=== PATIENT | female | born 1935 | race Caucasian/White ===

== ENCOUNTER → 2018-01-18 | Outpatient (CLI) | payer OTHER ==
[~2018-01-18] MED LIST: CIPRO250 M1 PO; CLARITIN10 MG PO; FISH OIL 1,001000 M2 PO; IRON325 PO; LEVAQUIN 500 M500 M2 PO; MULTIVITAMINS PO; VITAMIN C PO; VITAMIN D PO; ZANTAC 150MG T150 M1 PO
== END ==
LOC: M.CT 12:10 → M.LAB 12:30 → M.CT 13:30
DX: K59.09 Other constipation (principal); K57.30 Diverticulosis of large intestine without perforation or abscess without bleeding; K63.89 Other specified diseases of intestine; N39.0 Urinary tract infection, site not specified; R31.9 Hematuria, unspecified

== ENCOUNTER 2018-06-06 17:26 | Inpatient (IN) | payer OTHER ==
[~2018-06-06] VITALS: Ht 152.4 cm; Wt 72.1 kg
[~2018-06-06 17:26] MED LIST changes: -IRON325 PO; -LEVAQUIN 500 M500 M2 PO
[2018-06-06 17:29] VITALS: BP 115/59
[2018-06-06 18:42] LABS: HEMATOCRIT 32.3 % (37.0-47.0); HEMOGLOBIN 10.6 gm/dL (12.0-15.0); MCH 29.4 pg (26.0-34.0); MCHC 32.7 g/dL (28.0-37.0); MCV 89.9 fL (80.0-100.0); NUCLEATED RBCS 0 /100WBC; PLATELET COUNT* 248 thou/uL (150-400); RBC 3.59 mil/uL (4.20-5.00); WBC 11.3 thou/uL (4.0-11.0)
[2018-06-06 18:53] LABS: APTT 30.1 Seconds (25.0-31.3); PROTIME 10.5 Seconds (9.20-11.50)
[2018-06-06 18:54] LABS: CALCIUM 8.3 mg/dL (8.5-10.1); CREATININE 0.7 mg/dL (0.6-1.3); POTASSIUM 4.1 mmol/L (3.5-5.1)
[2018-06-06 18:59] LABS: ALBUMIN 2.9 g/dL (3.4-5.0); TOTAL BILIRUBIN 0.4 mg/dL (<0.1-1.0); TOTAL PROTEIN 8.1 g/dL (6.4-8.2)
[2018-06-06 19:15] LABS: ABSOLUTE LYMPHOCYTES 0.3 thou/uL (0.8-5.3); ABSOLUTE MONOCYTES 0.7 thou/uL (0.0-1.2); ABSOLUTE NEUTROPHILS 10.3 thou/uL (1.6-8.1)
[2018-06-06 19:16] LABS: PLATELET ESTIMATE ADEQUATE
[2018-06-06 19:45] LABS: URINE BILIRUBIN NEGATIVE (Negative); URINE BLOOD 2+ (Negative); URINE CLARITY CLEAR; URINE COLOR YELLOW; URINE GLUCOSE-RANDOM NEGATIVE (Negative); URINE KETONES NEGATIVE (Negative); URINE NITRITE-REFLEX NEGATIVE (Negative); URINE PROTEIN NEGATIVE (Negative); URINE SPECIFIC GRAVITY 1.015 (1.005-1.030); URINE UROBILINOGEN 0.2 E.U./dl (0.2-1.0)
[2018-06-06 19:46] LABS: URINE LEUKOCYTES-REFLEX 3+ (Negative)
[2018-06-06 19:55] LABS: BACTERIA-REFLEX 1-9 Few /HPF (None Seen); CASTS None Seen /LPF (None Seen); CRYSTALS None Seen /LPF (None Seen); SQUAMOUS 0-3 Few /LPF (0-3); URINE RBC 3-10 Few /HPF (0-2); URINE WBC-REFLEX >25 Many /HPF (0-5)
[2018-06-06 20:53] VITALS: BP 104/50
[2018-06-06 21:30] VITALS: BP 112/46
--- NOTE | 2018-06-06 23:05 | NUR ---
PT WAS ADMITTED ON THE FLOOR AT 2114. ACCOMPANIED BY ER NURSE. TRANSPORTED ON A STRETCHER. PT IS ALERT AWAKE ORIENTED X 4 PLEASNT, ON MED SURG STATUS. VITAL SIGNS ARE WITHIN NORMAL UNIT. PT IS CURRENTLY GIVEN CIPRO IV. SHE STATES THAT SHE WAS TAKING PO CIPRO AND SHE GOT SICK AFTER HER FIRST DOSE. SHE IS CURRENTLY ON ROOM AIR AND O2 SATURATION IS 99% ON RA. SHE COMPLAINS OF HEADACHE LEVEL OF 2. IBUPROFEN GIVEN FOR HEADACHE. ADMISSION ASSESSMENT AND HISTORY PERFORMED. IV BAG OF NS HANGED ORDERED GOING AT 90CC PER HOUR. IV LINE IS PATENT. MADE COMFORTABLE, LIGHTS OFF, BED IN LOWEST POSITION CALL LIGHT AT REACH. WILL CONTINUE TO MONITOR.
[2018-06-07] VITALS: BP 112/51
[2018-06-07 04:27] LABS: HEMATOCRIT 27.7 % (37.0-47.0); HEMOGLOBIN 9.4 gm/dL (12.0-15.0); MCH 30.5 pg (26.0-34.0); MCHC 33.8 g/dL (28.0-37.0); MCV 90.2 fL (80.0-100.0); MPV 7.9 fl. (7.2-11.1); RBC 3.07 mil/uL (4.20-5.00); RDW-CV 14.3 % (10.5-14.5); WBC 6.9 thou/uL (4.0-11.0)
[2018-06-07 04:41] LABS: ALBUMIN 2.3 g/dL (3.4-5.0); CALCIUM 7.8 mg/dL (8.5-10.1); CREATININE 0.7 mg/dL (0.6-1.3); TOTAL BILIRUBIN 0.3 mg/dL (<0.1-1.0); TOTAL PROTEIN 6.3 g/dL (6.4-8.2)
[2018-06-07 09:34] VITALS: BP 110/40
[2018-06-07 12:15] VITALS: BP 114/52
[2018-06-07 16:39] VITALS: BP 123/54
--- NOTE | 2018-06-07 17:38 | NUR ---
ASSUMED CARE OF PATIENT AFTER MORNING REPORT. ALERT AND ORIENTED X4. ASSESSMENT COMPLETED AND CHARTED. VSS ON ROOM AIR. NO COMPLAINTS OF PAIN, NAUSEA, OR SOA. FLUIDS AND ANTIBIOTICS INFUSED ORDERED. PATIENT RESTED COMFORTABLY IN BED THROUGHOUT SHIFT AND HAS NO COMPLAINTS OR NEEDS UPON ROUNDS. HOURLY ROUNDS MAINTAINED, CALL LIGHT WITHIN REACH, NURSING WILL CONTINUE TO MONITOR.
[2018-06-07 21:45] VITALS: BP 123/53
[2018-06-08 04:34] LABS: HEMATOCRIT 26.9 % (37.0-47.0); MCH 30.4 pg (26.0-34.0); MCHC 33.6 g/dL (28.0-37.0); MCV 90.3 fL (80.0-100.0); MPV 8.6 fl. (7.2-11.1); RBC 2.98 mil/uL (4.20-5.00); RDW-CV 14.1 % (10.5-14.5); WBC 6.5 thou/uL (4.0-11.0)
[2018-06-08 04:45] LABS: CALCIUM 7.7 mg/dL (8.5-10.1); CREATININE 0.6 mg/dL (0.6-1.3); MAGNESIUM 1.6 mg/dL (1.8-2.4); POTASSIUM 3.9 mmol/L (3.5-5.1)
[2018-06-08 04:54] VITALS: BP 112/50
--- NOTE | 2018-06-08 06:16 | NUR ---
UP WITH STAND BY ASSIST TO BATHROOM. VOIDING WITHOUT DIFFICULTY. NAUSEA MEDICATION GIVEN X1 AND HELPFUL. IVF INFUSING WITHOUT DIFFICULTY BED ALARM ON AND CALL LIGHT WITHIN REACH.
[2018-06-08 08:10] VITALS: BP 110/48
--- NOTE | 2018-06-08 10:17 | NUR ---
INITIAL ASSESSMENT: Pt evaluated for d/c planning needs. Reviewed chart and spoke with nurse, pt and SO at bedside. Pt is alert and oriented. Pt lives at home with SO and was independent with ADL's. Pt uses cane for ambulation and has not had home health in the past. Pt plans on returning home on d/c from hospital. Will remain available to assist as needed.
[2018-06-08 16:19] VITALS: BP 114/55
--- NOTE | 2018-06-08 19:57 | NUR ---
PATIENT RESTING IN BED. PATIENT HAS HAD COMPLAINTS OF ABDOMINAL CRAMPING THIS EVENING. PATIENTHAS HAD BOWEL MOVEMENT THIS EVENING. PATIENT HAS POOR APPETITE, REFUSING MOST OF MEALS. PATIENT IS UP AD BRENDA IN ROOM TO BATHROOM. PATIENT HAD CHILLS THIS EVENING WITH NAUSEA, NO FEVER AND NO VOMITING. PATRICK GIVEN AND DR STEWART NOTIFIED. PATIENT DENIES ANY NEEDS AT THIS TIME. CALL LIGHT WITHIN REACH. WILL CONTINUE TO MONITOR.
[2018-06-08 20:18] VITALS: BP 115/45
--- NOTE | 2018-06-09 00:01 | NUR ---
PATIENT ALERT AND ORIENTED X4. C/O NAUSEA AT ON PRIOR SHIFT AND WAS GIVEN NAUSEA MEDICATION AT 1854. PATIENT STILL C/O NAUSEA AT BEGINNING OF MY SHIFT. COOL WASH CLOTHS APPLIED TO PATIENT'S FACE AND NECK WHICH PATIENT STATED WAS HELPFUL. V/S TAKEN AND WAS NOTED TO HAVE ELEVATED PULSE AND TEMPATURE. NOTIFIED AND NEW ORDERS NOTED. NURSING DAY TRADER NOTIFIED AND REPORT WAS CALLED TO STEPHANIE. SHE WAS NOTIFED OF MOST RECENT ASSESSMENTS AND VS. PATIENT TRANSFERED TO ROOM 225 ON TELE VIA BED WITHOUT DIFFICULTY AT ABOUT 2200.
[2018-06-09 04:00] VITALS: BP 114/47; BP 117/53
--- NOTE | 2018-06-09 04:51 | NUR ---
PT ARRIVED FROM [facility] AT AROUND 10:35PM, RECIEVED REPORT, AND DID MY ASSESSMENT AT THIS TIME WITH NO CHANGES NOTED. PT STATED SHE ALREADY FELT BETTER AND WAS BACK TO NORMAL. UP WITH 1 WITH CANE, NO C/O PAIN, ABLE TO MAKE NEEDS KNOWN, IVF AND ABT GIVEN PER P.O. WILL CONTINUE TO MONITOR.
[2018-06-09 04:58] LABS: HEMATOCRIT 25.4 % (37.0-47.0); HEMOGLOBIN 8.5 gm/dL (12.0-15.0); MCH 30.5 pg (26.0-34.0); MCHC 33.6 g/dL (28.0-37.0); MCV 90.9 fL (80.0-100.0); MPV 8.9 fl. (7.2-11.1); RBC 2.79 mil/uL (4.20-5.00); RDW-CV 14.3 % (10.5-14.5); WBC 10.5 thou/uL (4.0-11.0)
[2018-06-09 05:10] LABS: CALCIUM 7.4 mg/dL (8.5-10.1); CREATININE 0.6 mg/dL (0.6-1.3); MAGNESIUM 1.9 mg/dL (1.8-2.4); POTASSIUM 3.8 mmol/L (3.5-5.1); TOTAL BILIRUBIN 0.3 mg/dL (<0.1-1.0); TOTAL PROTEIN 5.7 g/dL (6.4-8.2)
[2018-06-09 08:06] VITALS: BP 117/52
--- NOTE | 2018-06-09 09:51 | NUR ---
ASSUMED CARE OF PT THIS AM AROUND 0715- SUPERVISOR MOLD CLEANING AND STORAGE IN PLACE ORDERED, TRACING SB THIS AM- UPON ASSESSMENT PT NOTED TO BE RESTING IN BED, AT SIDE VISITTING- CONTINENT OF BOWEL AND BLADDER- ASSIST X1 WITH TRANSFERS- LCTA, DIMINISHED IN BASES- VSS, O2 SAT 93% ON 2L VIA NC- RESP EVEN AND UN-LABORED- ABDOMEN SOFT/ROUND/NON-TENDER, BS X4 QUADS- PT REPORTS TO HAVE HAD BM THIS AM- IV NOTED TO LEFT FA INTACT, IVF INFUSSING PRESCIBED- VANC GIVEN PRESIBED, NO ADVERSE REACTIONS TO NOTE- GOOD PO INTAKE NOTED THIS AM WITH BREAKFAST- DENIES ANY C/O PAIN/DISCOMFORT AT THIS TIME- CALL LIGHT AND PERSONAL BELONGINGS WITH IN REACH- HOURLY ROUNDS IN PLACE R/T SAFETY/NEEDS- ALL NEEDS MET AT THIS TIME-WCTM
[2018-06-09 12:30] VITALS: BP 112/51
[2018-06-09 16:00] VITALS: BP 122/59
--- NOTE | 2018-06-09 16:48 | NUR ---
PT CURRENLTY RESTING IN BED, FRIENDS AT SIDE VISITTING- MENTAL HEALTH AIDES TEACHER IN PLACE AND CONTINUED INDICATED, TRACING SR- IV TO LEFT FA INTACT, IVF INFUSSING PRESIBED- IV ABT GIVEN THIS SHIFT PRESCRIBED WITH NO ADVERSE REACTIONS TO NOTE- GOOD PO INTAKE NOTED WITH MEALS THIS SHIFT, PT REMAINS AFEBRILE-PT DENIES ANY C/O PAIN/DISCOMFORT AT THIS TIME- CALL LIGHT AND PERSONAL BELONGINGS WITH IN REACH- ALL NEEDS MET AT THIS TIME-WCTM
[2018-06-09 20:00] VITALS: BP 129/50
[2018-06-10] VITALS (7 sets, daily range): BP systolic 112–135; BP diastolic 51–80
--- NOTE | 2018-06-10 05:01 | NUR ---
ASSUMED PT CARE AT 1930. ASSESSMENT COMPLETED CHARTED. UP WITH STANDBY WITH A CANE, A & O, IVF AND ABT RUNNING PER P.O. NO C/O PAIN THIS SHIFT. RESTING COMFORTABLY IN BED. WILL CONTINUE TO MONITOR.
[2018-06-10 05:10] LABS: HEMATOCRIT 26.4 % (37.0-47.0); HEMOGLOBIN 8.7 gm/dL (12.0-15.0); MCH 30.1 pg (26.0-34.0); MCHC 33.1 g/dL (28.0-37.0); MCV 90.9 fL (80.0-100.0); RBC 2.9 mil/uL (4.20-5.00); RDW-CV 14.3 % (10.5-14.5); WBC 6.4 thou/uL (4.0-11.0)
[2018-06-10 05:27] LABS: CALCIUM 7.7 mg/dL (8.5-10.1); CREATININE 0.6 mg/dL (0.6-1.3); MAGNESIUM 1.9 mg/dL (1.8-2.4); POTASSIUM 4.3 mmol/L (3.5-5.1)
--- NOTE | 2018-06-10 10:55 | CON ---
[address] [address] CONSULTATION Name: DANNY RAJAN Room: [address] IN .R.#: [id number] Admission: 06/06/18 Attend Phys: Paige Robertson Discharge: Date of : 33 Report #: [id number] THIS REPORT FOR: //name// CC: Brett Oconnell DATE OF SERVICE: 06/09/2018 ATTENDING PHYSICIAN: Dima Otero MD REASON FOR CONSULTATION: UTI. HISTORY OF PRESENT ILLNESS: The patient is an 83-year-old white woman who apparently was receiving treatment for urinary tract infection with Cipro and she fell sick all over with nausea and vomiting. Today, she is feeling better and her urinary symptoms appear to have subsided. DRUG ALLERGIES: CODEINE, PENICILLIN. MEDICATIONS: The patient is on treatment with vancomycin 750 mg IV 2 times daily, Levaquin 500 mg IV daily, also receiving treatment with polyethylene glycol, enoxaparin, pantoprazole, potassium and phosphorus supplementation per protocol, multivitamins, acetaminophen p.r.n., tramadol p.r.n., morphine sulfate p.r.n., ondansetron p.r.n. PAST MEDICAL HISTORY: Rotator cuff surgery, bilateral. History of gastroesophageal reflux disease. Uterine prolapse surgery. Peptic ulcer disease. Cataract surgery. SOCIAL HISTORY: See H and P. FAMILY HISTORY: See H and P. REVIEW OF SYSTEMS: As above and see H and P. PHYSICAL EXAMINATION: GENERAL: This is a well-developed nontoxic looking woman. VITAL SIGNS: Temperature 102.4 yesterday, pulse 57, respirations 17, BP 117/53 and currently temperature is 97.6. HEENMT: Within range. NECK: Supple. LUNGS: Clear. BREASTS: Deferred. HEART: S1, S2. No gallop. ABDOMEN: Soft, no masses or megaly. PELVIC AND RECTAL: [place] [address] CONSULTATION Name: DANNY RAJAN Room: [address] IN [facility]#: [id number] Admission: 06/06/18 Attend Phys: Paige Robertson Discharge: Date of : 34 Report #: [id number] EXTREMITIES: No clubbing, cyanosis. NEUROLOGIC: Grossly within normal limits. LABORATORY DATA: On admission, sodium 128, repeated 135, potassium 3.9, BUN 6, creatinine 0.6. Magnesium 1.6. Albumin 2.9 g/dL. White blood cell count on admission 11,300, hemoglobin 10.6 g/dL. Repeat blood test on 06/08/2018 revealed a white blood cell count has decreased to 6500, hemoglobin 9 g/dL, platelets 195,000. Prealbumin 12.4 g/dL. The urinalysis revealed pH 5.5, 2+ blood, 3+ leukocyte esterase, microscopic examination of the urine revealed pyuria, microscopic hematuria and bacteriuria. Cultures are all negative or pending at the time of this dictation. CT scan of the abdomen and pelvis was canceled. Chest x-ray revealed some bilateral pulmonary infiltrates without significant focal consolidation. ASSESSMENT: 1. Fever, undetermined source. 2. Possible acute urinary tract infection. 3. Nausea and vomiting secondary to Cipro. 4. Fever, question etiology. 5. Hypoalbuminemia. 6. Electrolyte imbalance, improved, (?) resolved. 7. Hypomagnesemia. 8. Anemia of undetermined etiology. 9. Leukocytosis, resolved. SUGGESTIONS: Recommend continued treatment with vancomycin and Levaquin. Streamline antibiotic regimen once culture results available. Dr. Baker, thank you for requesting my suggestions. <ELECTRONICALLY SIGNED> By: Ammon Rao MD 06/10/18 1055 0507 [id number] Rao MD /nt
--- NOTE | 2018-06-10 12:00 | NUR ---
ASSUMED CARE OF PATIENT AFTER RECEIVING REPORT FROM NING RN. PT A & O X4. RN REVIEW IN PLACE, SR. O2 SAT 95% ON 2L NC/MIN. IV INFUSION OF IV ABX PER ORDER. ASSESSMENT COMPLETE, DOCUMENTED. MEDS PER DEC. PT UP WITH SBA ASSIST, CALLS APPROPRIATELY FOR HELP WHEN NEEDED. CALL LIGHT IN REACH.
--- NOTE | 2018-06-10 18:15 | NUR ---
PT UP TO CHAIR FOR RELIEF OF BACK PAIN. PRN TYLENOL GIVEN FOR BACK PAIN PER DEC. IV INFUSING LEVAQUIN ORDERED. PT ABLE TO COMMUNICATE NEEDS TO STAFF. CALL LIGHT IN REACH.
[2018-06-11 04:00] VITALS: BP 120/54
--- NOTE | 2018-06-11 04:52 | NUR ---
ASSUMED PT CARE AT 1930. ASSESSMENT COMPLETED CHARTED. ABLE TO MAKE NEEDS KNOWN. C/O NAUSEA AND HEADACHE TODAY AND GIVEN PRN PER P.O. UP WITH STANDBY. IV SL. PT RESTING IN BED MOST OF THE NIGHT. VSS. WILL CONTINUE TO MONITOR.
[2018-06-11 08:10] VITALS: BP 135/48
[2018-06-11 11:48] VITALS: BP 137/58
--- NOTE | 2018-06-11 18:57 | NUR ---
PATIENT HAS BEEN A/O X 4 THIS SHIFT. MEDICATED FOR HEADACHE THIS SHIFT WITH COMPLETE RELIEF AFTER EXCEDRIN GIVEN. VANC TROUGH LOW THIS SHIFT, DOSE INCREASED BY PHARMACY AND NEW DOSE GIVEN. PATIENT UP SBA WITH CANE TO BATHROOM. PATIENT M/S STATUS. PATIENT TOLERATING DIET, NO NAUSEA THIS SHIFT. PATIENT TO HAVE CXR IN AM. HOURLY ROUNDING COMPLETED. CALL LIGHT WITHIN REACH. WILL CONTINUE WITH PLAN OF CARE.
[2018-06-11 20:00] VITALS: BP 104/55
[2018-06-12] VITALS: BP 125/55
--- NOTE | 2018-06-12 03:38 | NUR ---
ASSUMED PT CARE AT 1930. ASSESSMENT COMPLETED CHARTED. ABLE TO MAKE NEEDS KNOWN. UP WITH STANDBY WITH CANE. NO C/O PAIN, NAUSEA, OR SOA. EXCITED TO BE GOING HOME TODAY. WILL CONTINUE TO MONITOR.
[2018-06-12 08:00] VITALS: BP 149/60
--- NOTE | 2018-06-12 11:04 | NUR ---
ASSUMED CARE OF PATIENT THIS AM AT 0730. PATIENT IS ALERT AND ORIENTED X 4. SHE DENIES PAIN AND DISCOMFORT. PATIENT ASSISTED WITH ADLS NEEDED THROUGHOUT THE AM. PATIENT TAKEN TO RADIOLOGY PER W/C FOR A XRAY PER AND RETURNED. DR VIGIL IN TO ROUND AND PLANS DISCHARGE FOR TODAY. PATIENT STATES SHE IS READY TO GO HOME.
[2018-06-12 12:18] VITALS: BP 149/60
[2018-06-12] MEDS ORDERED: LEVAQUIN 500 M500 M2 PO (13:00)
[2018-06-12] MEDS ORDERED: IRON325 PO (13:01)
== END 2018-06-12 13:45 | disposition home or self-care (01) | DRG 871 ==
LOC: M.ERS 17:26 → M.TBA-ER 20:04 → M.ORTHSURG 20:04 → M.2W 20:04 → M.ORTHSURG 06-07 07:49 → M.2W 06-08 22:21
PROVIDERS: Emergency Medicine Emergency Medical Services; Family Medicine; Internal Medicine; Nurse Practitioner Family; ADMIT Internal Medicine
DX: A41.9 Sepsis, unspecified organism (principal); J69.0 Pneumonitis due to inhalation of food and vomit; J15.6 Pneumonia due to other Gram-negative bacteria; E43 Unspecified severe protein-calorie malnutrition; N39.0 Urinary tract infection, site not specified; E87.1 Hypo-osmolality and hyponatremia; K21.9 Gastro-esophageal reflux disease without esophagitis; E88.09 Other disorders of plasma-protein metabolism, not elsewhere classified; E83.42 Hypomagnesemia; D72.829 Elevated white blood cell count, unspecified; K59.00 Constipation, unspecified; D50.9 Iron deficiency anemia, unspecified; Z98.42 Cataract extraction status, left eye; Z98.41 Cataract extraction status, right eye; Z88.6 Allergy status to analgesic agent; Z88.0 Allergy status to penicillin; Z87.11 Personal history of peptic ulcer disease; Z68.31 Body mass index [BMI] 31.0-31.9, adult

== ENCOUNTER 2018-09-14 09:25 | Emergency (ER) | payer OTHER ==
[~2018-09-14] VITALS: Ht 170.2 cm; Wt 61.2 kg
[~2018-09-14 09:25] MED LIST changes: +IRON325 PO; +LEVAQUIN 500 M500 M2 PO
[2018-09-14] MEDS ORDERED: SYNTHROID100 MC1 PO (09:34)
[2018-09-14 09:58] LABS: HEMOGLOBIN 11.2 gm/dL (12.0-15.0); MCH 29.8 pg (26.0-34.0); MCV 90.3 fL (80.0-100.0); MPV 8.6 fl. (7.2-11.1); NUCLEATED RBCS 0 /100WBC; PLATELET COUNT* 203 thou/uL (150-400); RBC 3.77 mil/uL (4.20-5.00); RDW-CV 15.9 % (10.5-14.5); WBC 5.2 thou/uL (4.0-11.0)
[2018-09-14 10:05] LABS: ANION GAP 9 mmol/L (7-16); BUN 10 mg/dL (7-18); CALCIUM 8.4 mg/dL (8.5-10.1); CHLORIDE 101 mmol/L (98-107); CO2 24 mmol/L (21-32); CREATININE 0.9 mg/dL (0.6-1.3); GLUCOSE 116 mg/dL (70-99); POTASSIUM 4.1 mmol/L (3.5-5.1); SODIUM 134 mmol/L (136-145)
[2018-09-14 10:15] LABS: ALBUMIN 2.8 g/dL (3.4-5.0); ALKALINE PHOSPHATASE 78 U/L (46-116); SGOT 23 U/L (15-37); SGPT 11 U/L (30-65); TOTAL BILIRUBIN 0.3 mg/dL (<0.1-1.0); TOTAL PROTEIN 7.3 g/dL (6.4-8.2); TROPONIN-I LEVEL <0.06 ng/mL (<0.06)
[2018-09-14 10:46] LABS: ABSOLUTE EOSINOPHILS 0.1 thou/uL (0.0-0.7); ABSOLUTE LYMPHOCYTES 0.2 thou/uL (0.8-5.3); ABSOLUTE MONOCYTES 0.2 thou/uL (0.0-1.2); ABSOLUTE NEUTROPHILS 4.8 thou/uL (1.6-8.1); PLATELET ESTIMATE ADEQUATE
[2018-09-14] MEDS ORDERED: KEFLEX500 M1 PO (11:09)
[2018-09-14] MEDS ORDERED: HYDROCODONE-AP1 EAC6 PO (11:09)
[2018-09-14 11:17] VITALS: BP 104/70
--- NOTE | 2018-09-16 10:20 | EKG ---
[place] [address] ELECTROCARDIOGRAM REPORT Name: DANNY RAJAN Room: [facility]#: [id number] Admission: 09/14/18 Attend Phys: Discharge: 09/14/18 Date of : 34 Report #: [id number] THIS REPORT FOR: //name// [facility] ED Test Date: 2018-09-14 Test Time: 09:34:53 Pat Name: DANNY RAJAN Department: Room: Gender: F Cyber Reverse Engineer: LEA : 1935 Requested By: Gordon Pack Order Number: [id number] MD: Wilton Cook Measurements Intervals [place] Rate: 92 P: 13 SC: 174 QRS: 12 QRSD: 75 T: 56 QT: 350 QTc: 433 Interpretive Statements Sinus rhythm Baseline wander in lead(s) V4,V5,V6 Compared to ECG 07/22/2017 15:44:16 Sinus tachycardia no longer present Electronically Signed On 09-16-2018 10:20:27 BRICK LAYER by Wilton Cook [email or web address] <ELECTRONICALLY SIGNED> By: Wilton Cook MD, [facility] 09/16/18 1020 Wilton Cook MD, [facility] /EPI
== END 2018-09-14 11:19 | disposition home or self-care (01) ==
LOC: M.ERS 09:25
PROVIDERS: Emergency Medicine Emergency Medical Services
DX: M25.512 Pain in left shoulder (principal); T37.0X5A Adverse effect of sulfonamides, initial encounter; K21.9 Gastro-esophageal reflux disease without esophagitis; Z88.1 Allergy status to other antibiotic agents; Z88.0 Allergy status to penicillin; Z88.5 Allergy status to narcotic agent; Y92.89 Other specified places as the place of occurrence of the external cause

== ENCOUNTER 2019-07-28 21:24 | Emergency (ER) | payer OTHER ==
[~2019-07-28] VITALS: Ht 170.2 cm; Wt 61.2 kg
[~2019-07-28 21:24] MED LIST changes: +HYDROCODONE-AP1 EAC6 PO; +KEFLEX500 M1 PO; +SYNTHROID100 MC1 PO
[2019-07-28] MEDS ORDERED: IBUPROFEN 600600 M1 PO ×2 (23:07→23:10)
[2019-07-28] MEDS ORDERED: TRAMADOL 50 MG50 MG PO (23:16)
[2019-07-28 23:35] VITALS: BP 132/59
== END 2019-07-28 23:35 | disposition home or self-care (01) ==
LOC: M.ERS 21:24
DX: S42.211A Unspecified displaced fracture of surgical neck of right humerus, initial encounter for closed fracture (principal); S80.211A Abrasion, right knee, initial encounter; K21.9 Gastro-esophageal reflux disease without esophagitis; Z88.1 Allergy status to other antibiotic agents; Z88.0 Allergy status to penicillin; Z88.5 Allergy status to narcotic agent; W18.39XA Other fall on same level, initial encounter; Y93.89 Activity, other specified; Y92.89 Other specified places as the place of occurrence of the external cause; Y99.8 Other external cause status

== ENCOUNTER 2019-09-09 18:31 | Inpatient (IN) | payer OTHER ==
[~2019-09-09] VITALS: Ht 170.2 cm; Wt 57.3 kg
[~2019-09-09 18:31] MED LIST changes: +IBUPROFEN 600600 M1 PO; +TRAMADOL 50 MG50 MG PO
[2019-09-09 18:36] VITALS: BP 133/61
[2019-09-09 20:27] LABS: ABSOLUTE LYMPHOCYTES 0.5 thou/uL (0.8-5.3); ABSOLUTE MONOCYTES 0.3 thou/uL (0.0-1.2); ABSOLUTE NEUTROPHILS 2.9 thou/uL (1.6-8.1); BASOPHILS 0.9 %; EOSINOPHILS 0.4 %; HEMOGLOBIN 7.8 gm/dL (12.0-15.0); LYMPHOCYTES 13.1 %; MCH 31.2 pg (26.0-34.0); MCV 91.9 fL (80.0-100.0); MONOCYTES 8.4 %; MPV 9.5 fl. (7.2-11.1); NUCLEATED RBCS 0 /100WBC; PLATELET COUNT* 230 thou/uL (150-400); POLYS 77.2 %; RBC 2.51 mil/uL (4.20-5.00); WBC 3.8 thou/uL (4.0-11.0)
[2019-09-09 20:35] LABS: CALCIUM 8.9 mg/dL (8.5-10.1); CREATININE 0.8 mg/dL (0.6-1.3); POTASSIUM 3.9 mmol/L (3.5-5.1)
[2019-09-09 20:36] LABS: ALBUMIN 3.2 g/dL (3.4-5.0); TOTAL BILIRUBIN 0.1 mg/dL (<0.1-1.0); TOTAL PROTEIN 7.4 g/dL (6.4-8.2)
[2019-09-09 20:39] LABS: URINE BILIRUBIN NEGATIVE (Negative); URINE BLOOD 3+ (Negative); URINE CLARITY SL CLOUDY; URINE COLOR YELLOW; URINE GLUCOSE-RANDOM NEGATIVE (Negative); URINE KETONES NEGATIVE (Negative); URINE NITRITE-REFLEX NEGATIVE (Negative); URINE PROTEIN NEGATIVE (Negative); URINE UROBILINOGEN 0.2 E.U./dl (0.2-1.0)
[2019-09-09 20:40] LABS: URINE LEUKOCYTES-REFLEX 3+ (Negative)
[2019-09-09 20:50] LABS: BACTERIA-REFLEX >30 Many /HPF (None Seen); CASTS None Seen /LPF (None Seen); CRYSTALS None Seen /LPF (None Seen); SQUAMOUS 4-10 Moderate /LPF (0-3); URINE RBC 3-10 Few /HPF (0-2); URINE WBC-REFLEX >25 Many /HPF (0-5)
[2019-09-09 22:44] LABS: HEMATOCRIT 21.5 % (37.0-47.0); HEMOGLOBIN 7.5 gm/dL (12.0-15.0)
[2019-09-09 23:20] VITALS: BP 125/59
[2019-09-10] VITALS: BP 130/58
[2019-09-10] MEDS ORDERED: BACTRIM DS TAB1 EAC1 PO (01:19)
[2019-09-10] MEDS ORDERED: NATURAL LUTEIN20 MG PO (01:19)
[2019-09-10 04:13] LABS: HEMATOCRIT 20.4 % (37.0-47.0)
[2019-09-10 04:25] LABS: HEMOGLOBIN 6.9 gm/dL (12.0-15.0)
[2019-09-10 04:45] LABS: % SATURATION 9 % (20-39); IRON 24 ug/dL (50-175)
[2019-09-10 08:00] VITALS: BP 179/59
[2019-09-10 14:00] VITALS: BP 102/85
[2019-09-10 16:03] VITALS: BP 145/49
--- NOTE | 2019-09-10 17:01 | EKG ---
[place] [address] ELECTROCARDIOGRAM REPORT Name: DANNY RAJAN Room: [address] ADM IN [facility].#: [id number] Admission: 09/09/19 Attend Phys: Mikey Johnson MD Discharge: Date of : 34 Report #: [id number] THIS REPORT FOR: //name// [facility] Test Date: 2019-09-10 Test Time: 11:30:26 Pat Name: DANNY RAJAN Department: Room: [address] Gender: F Email Manager: : 1935 Requested By: Lucien Falcon Order Number: [id number] Nory MD: Kyle Bueno Measurements Intervals [place] Rate: 82 P: 6 ND: 193 QRS: -11 QRSD: 69 T: 52 QT: 367 QTc: 429 Interpretive Statements Sinus rhythm Compared to ECG 09/14/2018 09:34:53 No significant changes Electronically Signed On 09-10-2019 17:01:11 FREIGHT CALLER by Kyle Bueno [email or web address] <ELECTRONICALLY SIGNED> By: Kyle Bueno MD, [facility] 09/10/19 1701 1130 29 Kyle Bueno MD, [facility]ACC /EPI
[2019-09-10] MEDS ORDERED: IRON325 M1 PO (19:19)
[2019-09-11 04:16] LABS: HEMATOCRIT 20.9 % (37.0-47.0); MCH 30.8 pg (26.0-34.0); MCHC 33.6 g/dL (28.0-37.0); MCV 91.7 fL (80.0-100.0); MPV 8.4 fl. (7.2-11.1); RBC 2.28 mil/uL (4.20-5.00); RDW-CV 16.5 % (10.5-14.5); WBC 2.2 thou/uL (4.0-11.0)
[2019-09-11 04:40] LABS: ALBUMIN 2.5 g/dL (3.4-5.0); CALCIUM 8.1 mg/dL (8.5-10.1); CREATININE 0.5 mg/dL (0.6-1.3); MAGNESIUM 1.9 mg/dL (1.8-2.4); POTASSIUM 3.5 mmol/L (3.5-5.1); TOTAL BILIRUBIN 0.1 mg/dL (<0.1-1.0)
[2019-09-11 07:50] VITALS: BP 120/45
--- NOTE | 2019-09-11 15:15 | CON ---
[address] [address] CONSULTATION Name: DANNY RAJAN Room: [address] IN [facility]#: [id number] Admission: 09/09/19 Attend Phys: Mikey Johnson MD Discharge: Date of : 34 Report #: [id number] THIS REPORT FOR: //name// CC: Dano Oconnell DO Mikey Johnson DICTATED BY: Elana Burris [facility] DATE OF SERVICE: 09/10/2019 Please note at the time of this dictation, the patient was seen and physically examined by myself. REASON FOR CONSULTATION: Melanotic stool, acute anemia. HISTORY OF PRESENT ILLNESS: This is a pleasant 84-year-old female who was last seen by us back in 2018. She underwent a colonoscopy. She was noted to have severe diverticulosis in the sigmoid colon and pandiverticulosis and external hemorrhoids were noted at that time. 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 Apparently, the surgery has been delayed due to her fall on her left shoulder. She had a fracture and she has been conservative care and also has been taking NSAIDs to help with this as well. The patient denies any nausea. She has had a decreased appetite, but she has had a lot of stressors, she has noted. She denies any acid reflux. She states she went on a diet. She used to have acid reflux until she lost a bunch of weight and she has not taken any since she has had all this weight loss. The patient states she started noticing a little bit of a dark stool late last week and then it became much more significant yesterday that she had a very black stool. She was feeling very tired and fatigued, lying still, sitting was fine, but if she got up to move around, she was very fatigued and a little bit of short of breath. The patient's hemoglobin in September of last year was 11.2, on admission she was 7.8 and has dropped down to 6.9. 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 ALLERGIES: PENICILLIN, CODEINE, CIPRO. MEDICATIONS: From home include fish oil, Lutein, Bactrim, Synthroid and multivitamin. PAST MEDICAL HISTORY: Hypothyroidism, remote history of GERD, recent shoulder fracture. PAST SURGICAL HISTORY: Rotator cuff, bilateral cataracts, [place] [address] CONSULTATION Name: DANNY RAJAN Room: [address] IN ..#: [id number] Admission: 09/09/19 Attend Phys: Mikey Johnson MD Discharge: Date of : 34 Report #: [id number] surgery. FAMILY HISTORY: Noncontributory. SOCIAL HISTORY: Denies any alcohol, tobacco or illegal drug use. REVIEW OF SYSTEMS: Twelve-point review of systems is essentially negative except what is mentioned in the HPI. PHYSICAL EXAMINATION: VITAL SIGNS: Temperature 36.2, pulse 80, respirations 18, blood pressure 172/59. HEART: Regular rate and rhythm. LUNGS: Diminished, but clear. ABDOMEN: Soft, positive bowel sounds in all 4 quadrants with no masses or tenderness noted. LABORATORY DATA: Hemoglobin again on admission was 7.8, is down to 6.9, white count is 3.8, platelets 250. Iron is 24, percentage sat is 9, TIBC 239, GFR 68. PT is 10. INR is 1. CT of the abdomen and pelvis shows small hiatal hernia and mild thickening of the esophagus. Large amount of stool still noted with some inflammation noted in the proximal sigmoid colon. IMPRESSION: 1. Melanotic stool. 2. Acute anemia. 3. Nonsteroidal anti-inflammatory drug use recently. 4. History of gastroesophageal reflux disease. 5. History of colovaginal fistula surgery forthcoming on 09/19/2019. PLAN: 1. EGD today with Dr. Buenrostro. 2. Agree with iron infusion since Yarsanism. 3. Further recommendations to be made once the procedure has been performed. Thank you for allowing us to participate in this patient's care. Please do not hesitate to call with any questions in regard to this consult. <ELECTRONICALLY SIGNED> By: Irma Buenrostro MD 09/11/19 1515 1034 1135Irma Buenrostro MD /nt
[2019-09-11 15:41] VITALS: BP 141/51
[2019-09-11 20:30] VITALS: BP 128/47
[2019-09-12 04:15] LABS: HEMATOCRIT 21.2 % (37.0-47.0)
[2019-09-12 08:00] VITALS: BP 124/51
[2019-09-12] MEDS ORDERED: NEXIUM40 MG PO (09:15)
[2019-09-12] MEDS ORDERED: KEFLEX500 M1 PO (09:15)
[2019-09-12] MEDS ORDERED: MIRALAX119 GM PO (09:19)
[2019-09-12 10:01] VITALS: BP 124/51
--- NOTE | 2019-09-12 12:06 | PATH ---
[address] [address] PATHOLOGY RPT PROCEDURE Name: DANNY TADEO Room: [address] IN ..#: [id number] Admission: 09/09/19 Date of : 34 Discharge: 09/12/19 Report #: [id number] Path Case #: [id number] [facility] Accession Number: [id number] . 01 Material submitted: . duodenum - DUODENAL BIOPSY DUODENAL ULCER . 01 Clinical history: . None provided . 02 Diagnosis: Duodenal biopsy/duodenal ulcer: - Severe nonspecific active duodenitis with evidence of ulceration, negative for granulomas, viral inclusions and dysplasia/adenomatous changes. (AMY:carlos; 09/12/2019) QMS 09/12/2019 0941 Local . 02 Electronically signed: . Catarino Ward MD, Pathologist NPI- [id number] . 01 Gross description: . The specimen is received in formalin, labeled "Danny Tadeo, duodenal biopsy, duodenal ulcer". Received are four segments of pale gipson soft tissue ranging in size from 0.3 to 0.5 cm in maximum dimensions. The specimen is submitted entirely in cassette A1. (CAA; 09/11/2019) QA/[facility] 09/11/2019 0840 Local . 02 Pathologist provided ICD-10: K29.80, K26.9 . 02 CPT . 925829 Specimen Comment: A courtesy copy of this report has been sent to [phone], [phone] Specimen Comment: [id number], Specimen Comment: Report sent to ,DR HAWKINS / DR HACKETT Performed at: [address], [place], [place] [id number] MD Randall Ellison MD Phone: [phone] Performed at: 02 [facility] [address], [place], [place] [id number] MD Catarino Ward MD Phone: [phone]
== END 2019-09-12 11:25 | disposition home or self-care (01) | DRG 378 ==
LOC: M.ERS 18:31 → M.ORTHSURG 22:50 → M.TBA-ER 22:50 → M.ORTHSURG 23:25
PROVIDERS: Internal Medicine; Personal Emergency Response Attendant; ADMIT Family Medicine
PROC: 0D798ZZ Dilation of Duodenum, Via Natural or Artificial Opening Endoscopic (ICD-10-PCS; principal; 2019-09-10)
PROC: 0D768ZZ Dilation of Stomach, Via Natural or Artificial Opening Endoscopic (ICD-10-PCS; principal; 2019-09-10)
PROC: 0DB98ZX Excision of Duodenum, Via Natural or Artificial Opening Endoscopic, Diagnostic (ICD-10-PCS; principal; 2019-09-10)
DX: K26.4 Chronic or unspecified duodenal ulcer with hemorrhage (principal); E87.1 Hypo-osmolality and hyponatremia; N39.0 Urinary tract infection, site not specified; N82.3 Fistula of vagina to large intestine; K31.5 Obstruction of duodenum; E44.0 Moderate protein-calorie malnutrition; E03.9 Hypothyroidism, unspecified; F43.9 Reaction to severe stress, unspecified; B95.4 Other streptococcus as the cause of diseases classified elsewhere; D50.0 Iron deficiency anemia secondary to blood loss (chronic); K21.0 Gastro-esophageal reflux disease with esophagitis; K57.10 Diverticulosis of small intestine without perforation or abscess without bleeding; K25.4 Chronic or unspecified gastric ulcer with hemorrhage; Z88.1 Allergy status to other antibiotic agents; Z98.42 Cataract extraction status, left eye; Z98.41 Cataract extraction status, right eye; Z88.5 Allergy status to narcotic agent; Z88.0 Allergy status to penicillin; Z79.899 Other long term (current) drug therapy; Z96.1 Presence of intraocular lens